=== PATIENT | male | born 2000 | race Caucasian/White ===

== ENCOUNTER 2022-11-28 13:25 | Emergency (ER) | payer MEDICAID, SELFPAY ==
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
[2022-11-28 13:41] VITALS: BP 122/78; PULSE 91; RESP 18; TEMP 36.4; O2SAT 98; BMI 24.4
--- NOTE | 2022-11-28 13:44 | ECG_ITS ---
Test Reason : CHEST PAIN Blood Pressure : / mmHG Vent. Rate : 079 BPM Atrial Rate : 079 BPM P-R Int : 122 ms QRS Dur : 070 ms QT Int : 340 ms P-R-T Axes : 013 025 011 degrees QTc Int : 389 ms Normal sinus rhythm with sinus arrhythmia Normal ECG No previous ECGs available Referred By: Sandra Estrada Electronically Signed By:NELLY TREVIÑO MD
== END 2022-11-28 15:50 | disposition home or self-care (01) ==
PROVIDERS: Emergency Provider Internal Medicine
DX: S13.4XXA Sprain of ligaments of cervical spine, initial encounter (principal); S09.90XA Unspecified injury of head, initial encounter; V43.62XA Car passenger injured in collision with other type car in traffic accident, initial encounter; Y93.89 Activity, other specified; Y92.414 Local residential or business street as the place of occurrence of the external cause; Y99.9 Unspecified external cause status
CPT/HCPCS: 70450; 71046; 72125; 93005; 99284